=== PATIENT | female | born 1995 | race Caucasian/White ===

== ENCOUNTER 2016-10-05 18:36 | Emergency (ER) | payer OTHER ==
[~2016-10-05 18:36] MED LIST: FERROUS SULFAT324 MG PO; PRENATAL1 TAB PO
--- NOTE | 2016-10-05 21:08 | DIAGNOSTIC IMAGING REPORT ---
PROCEDURE: CT HEAD WITHOUT CONTRAST INDICATION: HEADACHE TECHNIQUE: Axial CT images were acquired through the head. Coronal and sagittal reformations were created. COMPARISON: None. FINDINGS: No intracranial hemorrhage or extraaxial fluid collections. Ventricles are normal in size, shape and position. There is no mass effect or midline shift. The asif-white matter differentiation is normal. 9 mm small focal wedge-shaped hypodensity in the superior left cerebellar hemisphere Incidental note is made of ovoid osseous excrescence, homogeneously calcified, measuring 13 x 7 x 9 mm with a broad-based attachment to the right frontal parasagittal dura near the vertex. The calvarium is intact. Patchy partial opacification of many of the ethmoid air cells. No acute air fluid levels the visible sinuses although distal maxillary sinuses are not included on the film. The other paranasal sinuses and mastoid air cells are normally aerated. The extracranial soft tissues and orbits are normal. IMPRESSION: 1. 9 mm wedge-shaped hypodensity in the left superior cerebellar hemisphere of uncertain etiology and chronicity. While this may be benign, a small infarct cannot be excluded. 2. Incidental note made of a 13 mm calcified dural-based right frontal vertex lesion, likely a meningioma or arachnoid granulation. 3. Contrast enhanced MRI is recommended for further evaluation. 4. Mild ethmoid sinus disease. 5. Findings discussed with Jailene Cruz at [address] scans at this facility use dose modulation, iterative reconstruction, and/or weight-based dosing when appropriate to reduce radiation dose to as low as reasonably achievable.
--- NOTE | 2016-10-05 21:23 | ED CLINICAL REPORT ---
Clinical Report - Physicians/Mid Levels [facility] [address] [place] [address] 10/05/2016 18:36 Patient: MIKEY ARRIAGA Time Seen: 19:22; initial patient contact, initial documentation, patient care assumed. Arrived- By private vehicle. Historian- patient. HISTORY OF PRESENT ILLNESS Chief Complaint: HEADACHE. Is still present (persistent today). 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 It was abrupt in onset and has been intermittent (headache started x2 days ago, took meds, went to bed, awoke, headache gone, came back today). It is described as "pain". Located in the right hemicranial, right parietal, right temporal and frontal region and region of the right eye. Located in the facial region. No neck pain. At its maximum, severity described as severe. When seen in the E.D., severity described as severe. Modifying factors: worsened by bright light; relieved by nothing. The patient has had blurred vision, photophobia, nausea and vomiting. The vomiting has occurred twice. No preceding symptoms, numbness or weakness. No recent travel. Similar symptoms previously: Milder. Recent medical care: Not recently seen/assessed. REVIEW OF SYSTEMS No fever, ear pain, sore throat, head injury or chest pain. No difficulty breathing or abdominal pain. She has had sinus pressure (says she came down with head cold thing about 2 days ago when headache first started). All systems otherwise negative, except as recorded above. PAST HISTORY See nurses notes. History of chronic headaches. PROBLEMS: URI. Abdominal Pain. UTI - Urinary Tract Infection. OB History. Demise. Anxiety Reaction. Allergic Reaction. Asthma. Myofascial Strain. Fall. Contusion. --19:10 Merari Del Valle. ADDITIONAL SURGERIES: Dilatation & Curettage. Fracture Repair. Previous Abdominal Surgery. Wrist - right. --19:10 Merari Del Valle. SOCIAL HISTORY Never smoker. No alcohol use or drug use. No recent travel. Is a local resident. FAMILY HISTORY Negative. ADDITIONAL NOTES The nursing notes have been reviewed with agreement regarding the chief complaint, HPI, ROS, PMH and patient medications and allergies. PHYSICAL EXAM Vital Signs: 10/05/2016 19:12 BP: 121/81. HR: 83. RR: 16. O2 saturation: 99%. Temp: 98.5 F. Have been reviewed as normal and appear to be correct. Appearance: Alert. No acute distress. Head: Tenderness present to percussion/palpation of the sinuses: mild right and left frontal tenderness, ethmoid tenderness. Eyes: Pupils equal, round and reactive to light. Eyes normal inspection. ENT: Ears normal. Nose abnormal. Pharynx normal. Neck: Normal inspection. Neck supple. CVS: Normal heart rate and rhythm. Heart sounds normal. Pulses normal. Respiratory: No respiratory distress. Breath sounds normal. Abdomen: Soft and nontender. No organomegaly. Back: Normal inspection. Skin: Skin warm and dry. Normal skin color. No rash. Normal skin turgor. Extremities: Extremities exhibit normal ROM. No lower extremity edema. Neuro: Oriented X 3. Alert. Mood/affect normal. Speech normal. Cranial nerves normal (as tested). No cerebellar findings. No motor deficit. No sensory deficit. LABS, X-RAYS, AND EKG CT Head: . (IMPRESSION: 1. 9 mm wedge-shaped hypodensity in the left superior cerebellar hemisphere of uncertain etiology and chronicity. While this may be benign, a small infarct cannot be excluded. 2. Incidental note made of a 13 mm calcified dural-based right frontal vertex lesion, likely a meningioma or arachnoid granulation. 3. Contrast enhanced MRI is recommended for further evaluation. 4. Mild ethmoid sinus disease. 5. Findings discussed with Jailene Cruz at [address] scans at this facility use dose modulation, iterative reconstruction, and/or weight-based dosing when appropriate to reduce radiation dose to as low as reasonably achievable. Electronically Final signed by:Vandana Steinberg MD 10/05/2016 9:08:07 PM). PROGRESS AND PROCEDURES Patient and spouse counseled in person regarding the patient's stable condition, test results and diagnosis. 2114. Differential Diagnosis: I considered vascular etiology, migraine, cluster headache, subarachnoid hemorrhage, intracranial bleed, vascular malformation, cerebral aneurysm, vascular dissection, vasculitis, temporal arteritis, encephalitis, brain abscess, sinusitis, influenza, viral syndrome, carbon monoxide exposure, analgesic abuse, hypoglycemia, trigeminal neuralgia and muscle tension as a possible cause of headache in this patient. This is a partial list of diagnoses considered. Above considerations are based on history, physical exam, reassessment and other information. Differential diagnosis was discussed with patient. Disposition: Discharged home in good and improved condition (21:23). Condition: good and stable. CLINICAL IMPRESSION Acute, poorly controlled headache. INSTRUCTIONS Do not work today, tomorrow. Warnings: Further evaluation is necessary in order to conduct further tests and assess the possibility of serious illness. It is very important to follow up with a physician. GENERAL WARNINGS: Return or contact your physician immediately if your condition worsens or changes unexpectedly, if not improving as expected, or if other problems arise. SPECIFICALLY, return if you develop fever, vomiting, numbness, weakness, difficulty thinking, visual disturbances, fainting or extreme fatigue. Prescription Medications: Zofran 4 mg: Take 1 orally every six hours as needed for nausea/vomiting. Dispense ten (10). No refills. Substitution is permissible. Fioricet: Take 1-2 orally every 4 hours as needed for headache. Dispense twenty (20). No refills. Substitution is permissible. Follow-up: Follow up with your doctor in about two days even if well. Call for an appointment. Summary of care provided to patient and family. Understanding of the discharge instructions verbalized by patient and family. Follow-up with: Lio Jasso MD, Neurology, , [address], , [place], [phone]; Susan Howell MD, Neurology, , [address], , [place], [phone] Follow up in about two days even if well. Call for an appointment. Summary of care provided to patient and family. (Electronically signed by Jailene Cruz A.R.N.P. 10/05/2016 22:01)
--- NOTE | 2016-10-05 21:23 | ED CLINICAL REPORT ---
Clinical Report - Physicians/Mid Levels [facility] [address] [place] [address] 10/05/2016 18:36 Patient: MIKEY ARRIAGA Time Seen: 19:22; initial patient contact, initial documentation, patient care assumed. Arrived- By private vehicle. Historian- patient. HISTORY OF PRESENT ILLNESS Chief Complaint: HEADACHE. Is still present (persistent today). 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 It was abrupt in onset and has been intermittent (headache started x2 days ago, took meds, went to bed, awoke, headache gone, came back today). It is described as "pain". Located in the right hemicranial, right parietal, right temporal and frontal region and region of the right eye. Located in the facial region. No neck pain. At its maximum, severity described as severe. When seen in the E.D., severity described as severe. Modifying factors: worsened by bright light; relieved by nothing. The patient has had blurred vision, photophobia, nausea and vomiting. The vomiting has occurred twice. No preceding symptoms, numbness or weakness. No recent travel. Similar symptoms previously: Milder. Recent medical care: Not recently seen/assessed. REVIEW OF SYSTEMS No fever, ear pain, sore throat, head injury or chest pain. No difficulty breathing or abdominal pain. She has had sinus pressure (says she came down with head cold thing about 2 days ago when headache first started). All systems otherwise negative, except as recorded above. PAST HISTORY See nurses notes. History of chronic headaches. PROBLEMS: URI. Abdominal Pain. UTI - Urinary Tract Infection. OB History. Demise. Anxiety Reaction. Allergic Reaction. Asthma. Myofascial Strain. Fall. Contusion. --19:10 Merari Del Valle. ADDITIONAL SURGERIES: Dilatation & Curettage. Fracture Repair. Previous Abdominal Surgery. Wrist - right. --19:10 Merari Del Valle. SOCIAL HISTORY Never smoker. No alcohol use or drug use. No recent travel. Is a local resident. FAMILY HISTORY Negative. ADDITIONAL NOTES The nursing notes have been reviewed with agreement regarding the chief complaint, HPI, ROS, PMH and patient medications and allergies. PHYSICAL EXAM Vital Signs: 10/05/2016 19:12 BP: 121/81. HR: 83. RR: 16. O2 saturation: 99%. Temp: 98.5 F. Have been reviewed as normal and appear to be correct. Appearance: Alert. No acute distress. Head: Tenderness present to percussion/palpation of the sinuses: mild right and left frontal tenderness, ethmoid tenderness. Eyes: Pupils equal, round and reactive to light. Eyes normal inspection. ENT: Ears normal. Nose abnormal. Pharynx normal. Neck: Normal inspection. Neck supple. CVS: Normal heart rate and rhythm. Heart sounds normal. Pulses normal. Respiratory: No respiratory distress. Breath sounds normal. Abdomen: Soft and nontender. No organomegaly. Back: Normal inspection. Skin: Skin warm and dry. Normal skin color. No rash. Normal skin turgor. Extremities: Extremities exhibit normal ROM. No lower extremity edema. Neuro: Oriented X 3. Alert. Mood/affect normal. Speech normal. Cranial nerves normal (as tested). No cerebellar findings. No motor deficit. No sensory deficit. LABS, X-RAYS, AND EKG CT Head: . (IMPRESSION: 1. 9 mm wedge-shaped hypodensity in the left superior cerebellar hemisphere of uncertain etiology and chronicity. While this may be benign, a small infarct cannot be excluded. 2. Incidental note made of a 13 mm calcified dural-based right frontal vertex lesion, likely a meningioma or arachnoid granulation. 3. Contrast enhanced MRI is recommended for further evaluation. 4. Mild ethmoid sinus disease. 5. Findings discussed with Jailene Cruz at [address] scans at this facility use dose modulation, iterative reconstruction, and/or weight-based dosing when appropriate to reduce radiation dose to as low as reasonably achievable. Electronically Final signed by:Vandana Steinberg MD 10/05/2016 9:08:07 PM). PROGRESS AND PROCEDURES Patient and spouse counseled in person regarding the patient's stable condition, test results and diagnosis. 2114. Differential Diagnosis: I considered vascular etiology, migraine, cluster headache, subarachnoid hemorrhage, intracranial bleed, vascular malformation, cerebral aneurysm, vascular dissection, vasculitis, temporal arteritis, encephalitis, brain abscess, sinusitis, influenza, viral syndrome, carbon monoxide exposure, analgesic abuse, hypoglycemia, trigeminal neuralgia and muscle tension as a possible cause of headache in this patient. This is a partial list of diagnoses considered. Above considerations are based on history, physical exam, reassessment and other information. Differential diagnosis was discussed with patient. Disposition: Discharged home in good and improved condition (21:23). Condition: good and stable. CLINICAL IMPRESSION Acute, poorly controlled headache. INSTRUCTIONS Do not work today, tomorrow. Warnings: Further evaluation is necessary in order to conduct further tests and assess the possibility of serious illness. It is very important to follow up with a physician. GENERAL WARNINGS: Return or contact your physician immediately if your condition worsens or changes unexpectedly, if not improving as expected, or if other problems arise. SPECIFICALLY, return if you develop fever, vomiting, numbness, weakness, difficulty thinking, visual disturbances, fainting or extreme fatigue. Prescription Medications: Zofran 4 mg: Take 1 orally every six hours as needed for nausea/vomiting. Dispense ten (10). No refills. Substitution is permissible. Fioricet: Take 1-2 orally every 4 hours as needed for headache. Dispense twenty (20). No refills. Substitution is permissible. Follow-up: Follow up with your doctor in about two days even if well. Call for an appointment. Summary of care provided to patient and family. Understanding of the discharge instructions verbalized by patient and family. Follow-up with: Lio Jasso MD, Neurology, , [address], , [place], [id number]; Susan Howell MD, Neurology, , [address], , [place], [phone] Follow up in about two days even if well. Call for an appointment. Summary of care provided to patient and family. (Electronically signed by Jailene Cruz A.R.N.P. 10/05/2016 22:01)
--- NOTE | 2016-10-05 21:23 | ED NURSING NOTES ---
Clinical Report - Nurses [facility] [address] [place] [address] 10/05/2016 18:36 [id number] TRI[facility] Triage time 19:08 Oct 05 2016. Acuity: LEVEL 5. Chief Complaint: HEADACHE. 19:10/05/16. Alert. No acute distress. SEPSIS SCREEN: Sepsis Screen. Negative (no infection suspected/documented). DINA COMA SCORE: Bradford Coma Scale: 15- eyes open spontaneously (4); best verbal response- oriented x 4 (5); best motor response- obeys commands (6). --19:12 Merari Del Valle 19:12 10/05/16. BP: 121/81. HR: 83. RR: 16. O2 saturation: 99%. Temp: 98.5 F. Pain level now 7/10. --19:12 Merari Del Valle 19:12 10/05/16. --19:12 Merari Del Valle. Weight: 72.5 kg stated. Height/Length: 65 inches Per Patient. BMI: 26.6. --19:07 Merari Del Valle. Medications Amoxicillin Oral (UTI). --19:09 Merari Del Valle Multivitamins Oral. --19:10 Merari Del Valle. Medication/allergy information source: the patient. --19:12 Merari Del Valle. Allergies Sulfa Antibiotics. --19:10 Merari Del Valle Latex. --19:10 Merari Del Valle. History Arrived by private vehicle. Historian: patient. Accompanied by friend. Primary physician (Azalia). This started Noon today. ( Pt reports that her headache started at about noon. This is worse than her usual headaches. Has had N/V. Hasn't felt sick before this. Denies other symptoms. Reports mildly blurred vision.). She has had nausea and vomiting. No weakness, numbness or fever. 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 PAST MEDICAL HX: Headaches. No history of head injury. Immunizations: up-to-date. Last normal menstrual period- Doesn't remember, pill takes periods away. Uses control pills. FALL RISK ASSESSMENT: Fall risk assessment completed. No fall risk identified. NUTRITIONAL RISK ASSESSMENT: The nutritional risk assessment revealed no deficiencies. FUNCTIONAL ASSESSMENT: Functional assessment: no impairments noted. LEARNING NEEDS ASSESSMENT: The learning needs assessment revealed no barriers. SKIN INTEGRITY ASSESSMENT: Skin integrity risk assessment completed. No skin integrity risk identified. --19:12 Merari Del Valle SOCIAL HX: Never smoker. No alcohol use or drug use. No recent travel. She has had contact with a sick individual. (head cold-patient). --19:12 Merari Del Valle. PROBLEMS: URI. Abdominal Pain. UTI - Urinary Tract Infection. OB History. Demise. Anxiety Reaction. Allergic Reaction. Asthma. Myofascial Strain. Fall. Contusion. --19:10 Merari Del Valle. ADDITIONAL SURGERIES: Dilatation & Curettage. Fracture Repair. Previous Abdominal Surgery. Wrist - right. --19:10 Merari Del Valle. Assessment The patient states feels the same. --19:12 Merari Del Valle. Interventions ID band on patient. --19:12 Merari Del Valle. PHYSICAL ASSESSMENT 19:10/05/16. Ambulatory to room. GENERAL / NEURO / PSYCH: Alert. Oriented X 4. Appears in no acute distress. Speech within normal limits. HEENT: No facial asymmetry noted. Pupils equal, round and reactive to light. RESPIRATORY: Respirations not labored. CVS: Capillary refill less than 2 seconds. GI / : Abdomen soft and nontender. SKIN: Skin is warm and dry. --19:13 Merari Del Valle. NURSING PROGRESS NOTES 19:10/05/16. The plan of care for this patient has been created. Head of bed elevated. Reassurance given. Lights dimmed. Two patient identifiers checked. Call light placed in reach. Side rails up x 1. Bed placed in lowest position. Brakes of bed on. Patient ready for evaluation- chart flagged and ED physician and ROLLER REPAIRER notified. --19:13 Merari Del Valle 19:10/05/16. ( Has had a migraine before, but this is worse.). --19:13 Merari Del Valle 20:14 10/05/2016 Toradol (Ketorolac Tromethamine) IM 60 mg given. Given in the right anterior lateral thigh. --20:17 Merari Del Valle 20:16 10/05/2016 Reglan (Metoclopramide HCl) IM 10 mg given. Given in the right gluteus asya. Allergies verified and confirmed 5 rights. --20:18 Merari Del Valle 20:17 10/05/2016 Benadryl (DiphenhydrAMINE HCl) IM 50 mg given. Given in the right deltoid. Allergies verified, confirmed 5 rights and sedative warning given to the patient. --20:17 Merari Del Valle 20:18 10/05/16. Patient walked to [facility] with tech. (20:18 Oct 05 2016). --20:18 Merari Del Valle. DISPOSITION / DISCHARGE 21:38 10/05/16. Departure time: :Oct 05 2016. Condition at departure: improved. The goals identified in the patient's plan of care were met. No learning barriers present. Discharge instructions provided and reviewed with communications attendant and the patient. Reviewed warnings (Patient's friend verbalized awareness of warning s/sx listed in dc paperwork.). Reviewed medication(s) side effects, precautions, dosing and course information. Prescription(s) given to the patient (fioricet, zofran). Treatments reviewed. Reviewed referral to a primary care physician for followup. Patient and communications attendant verbalized understanding. Written instructions provided in Slovak. The patient was discharged by the nurse practitioner. She was discharged home and accompanied by communications attendant. She left the Emergency Department ambulatory and via private vehicle. Document Examiner driving. FALL RISK ASSESSMENT: Fall risk assessment completed. No fall risk identified. --21:39 Merari Del Valle 21:37 10/05/16. BP: 100/65. HR: 81. RR: 15. O2 saturation: 100% on room air. Temp: 98.3 F. Pain level now: 06/04. --21:39 Merari Del Valle. Locked/Released at 10/05/2016 21:55 by Merari Del Valle,
--- NOTE | 2016-10-05 21:23 | ED ORDER SUMMARY ---
..... Patient: MIKEY ARRIAGA OrderSheet [facility] VisitID: [id number] [address] [place] [address] 21y, F Registration Date/Time: 10/05/2016 ORDER SHEET Weight: 72.5 kg (stated) Allergies: Sulfa Antibiotics, Latex GENERAL ORDERS: CT Head wo Cont Urgent (20:08 10/05/2016 HBivens A.R.N.P.) (Ack 20:09 [facility] ER Herb Doctor) [facility] MEDICATION ORDERS: Toradol IM 60 mg (NOW) (20:08 10/05/2016 HBivens A.R.N.P.) (20:17 ASchmuck) Benadryl IM 50 mg (NOW) (20:08 10/05/2016 HBivens A.R.N.P.) (20:18 ASchmuck) - (reglan 10mg im stat please) (20:10/05/2016 HBivens A.R.N.P.) (20:18 ASchmuck) IV FLUIDS: ORDER SHEET NOTES: [Electronically signed by Merari Del Valle (21:55 10/05/2016)] [Electronically signed by Jailene Cruz A.R.N.P. (22:01 10/05/2016)] [Electronically locked/signed by Merari Del Valle (21:55 10/05/2016)]
--- NOTE | 2016-10-05 21:23 | ED NURSING NOTES ---
Clinical Report - Nurses [facility] [address] [place] [address] 10/05/2016 18:36 [id number] Triage time 19:08 Oct 05 2016. Acuity: LEVEL 5. Chief Complaint: HEADACHE. 19:10/05/16. Alert. No acute distress. SEPSIS SCREEN: Sepsis Screen. Negative (no infection suspected/documented). DINA COMA SCORE: [place] Coma Scale: 15- eyes open spontaneously (4); best verbal response- oriented x 4 (5); best motor response- obeys commands (6). --19:12 Merari Del Valle 19:12 10/05/16. BP: 121/81. HR: 83. RR: 16. O2 saturation: 99%. Temp: 98.5 F. Pain level now 7/10. --19:12 Merari Del Valle 19:12 10/05/16. --19:12 Merari Del Valle. Weight: 72.5 kg stated. Height/Length: 65 inches Per Patient. BMI: 26.6. --19:07 Merari Del Valle. Medications Amoxicillin Oral (UTI). --19:09 Merari Del Valle Multivitamins Oral. --19:10 Merari Del Valle. Medication/allergy information source: the patient. --19:12 Merari Del Valle. Allergies Sulfa Antibiotics. --19:10 Merari Del Valle Latex. --19:10 Merari Del Valle. History Arrived by private vehicle. Historian: patient. Accompanied by friend. Primary physician (Azalia). This started Noon today. ( Pt reports that her headache started at about noon. This is worse than her usual headaches. Has had N/V. Hasn't felt sick before this. Denies other symptoms. Reports mildly blurred vision.). She has had nausea and vomiting. No weakness, numbness or fever. 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 PAST MEDICAL HX: Headaches. No history of head injury. Immunizations: up-to-date. Last normal menstrual period- Doesn't remember, pill takes periods away. Uses control pills. FALL RISK ASSESSMENT: Fall risk assessment completed. No fall risk identified. NUTRITIONAL RISK ASSESSMENT: The nutritional risk assessment revealed no deficiencies. FUNCTIONAL ASSESSMENT: Functional assessment: no impairments noted. LEARNING NEEDS ASSESSMENT: The learning needs assessment revealed no barriers. SKIN INTEGRITY ASSESSMENT: Skin integrity risk assessment completed. No skin integrity risk identified. --19:12 Merari Del Valle SOCIAL HX: Never smoker. No alcohol use or drug use. No recent travel. She has had contact with a sick individual. (head cold-patient). --19:12 Merari Del Valle. PROBLEMS: URI. Abdominal Pain. UTI - Urinary Tract Infection. OB History. Demise. Anxiety Reaction. Allergic Reaction. Asthma. Myofascial Strain. Fall. Contusion. --19:10 Merari Del Valle. ADDITIONAL SURGERIES: Dilatation & Curettage. Fracture Repair. Previous Abdominal Surgery. Wrist - right. --19:10 Merari Del Valle. Assessment The patient states feels the same. --19:12 Merari Del Valle. Interventions ID band on patient. --19:12 Merari Del Valle. PHYSICAL ASSESSMENT 19:10/05/16. Ambulatory to room. GENERAL / NEURO / PSYCH: Alert. Oriented X 4. Appears in no acute distress. Speech within normal limits. HEENT: No facial asymmetry noted. Pupils equal, round and reactive to light. RESPIRATORY: Respirations not labored. CVS: Capillary refill less than 2 seconds. GI / : Abdomen soft and nontender. SKIN: Skin is warm and dry. --19:13 Merari Del Valle. NURSING PROGRESS NOTES 19:10/05/16. The plan of care for this patient has been created. Head of bed elevated. Reassurance given. Lights dimmed. Two patient identifiers checked. Call light placed in reach. Side rails up x 1. Bed placed in lowest position. Brakes of bed on. Patient ready for evaluation- chart flagged and ED physician and BRICK TOSSER notified. --19:13 Merari Del Valle 19:10/05/16. ( Has had a migraine before, but this is worse.). --19:13 Merari Del Valle 20:14 10/05/2016 Toradol (Ketorolac Tromethamine) IM 60 mg given. Given in the right anterior lateral thigh. --20:17 Merari Del Valle 20:16 10/05/2016 Reglan (Metoclopramide HCl) IM 10 mg given. Given in the right gluteus asya. Allergies verified and confirmed 5 rights. --20:18 Merari Del Valle 20:17 10/05/2016 Benadryl (DiphenhydrAMINE HCl) IM 50 mg given. Given in the right deltoid. Allergies verified, confirmed 5 rights and sedative warning given to the patient. --20:17 Merari Del Valle 20:18 10/05/16. Patient walked to [facility] with tech. (20:18 Oct 05 2016). --20:18 Merari Del Valle. DISPOSITION / DISCHARGE 21:38 10/05/16. Departure time: :Oct 05 2016. Condition at departure: improved. The goals identified in the patient's plan of care were met. No learning barriers present. Discharge instructions provided and reviewed with surface grinder tender and the patient. Reviewed warnings (Patient's friend verbalized awareness of warning s/sx listed in dc paperwork.). Reviewed medication(s) side effects, precautions, dosing and course information. Prescription(s) given to the patient (fioricet, zofran). Treatments reviewed. Reviewed referral to a primary care physician for followup. Patient and surface grinder tender verbalized understanding. Written instructions provided in Thai. The patient was discharged by the nurse practitioner. She was discharged home and accompanied by surface grinder tender. She left the Emergency Department ambulatory and via private vehicle. Partner Integration Planner driving. FALL RISK ASSESSMENT: Fall risk assessment completed. No fall risk identified. --21:39 Merari Del Valle 21:37 10/05/16. BP: 100/65. HR: 81. RR: 15. O2 saturation: 100% on room air. Temp: 98.3 F. Pain level now: 06/04. --21:39 Merari Del Valle. Locked/Released at 10/05/2016 21:55 by Merari Del Valle,
--- NOTE | 2016-10-05 21:23 | ED ORDER SUMMARY ---
..... Patient: MIKEY ARRIAGA OrderSheet [facility] VisitID: [id number] [address] [place] [address] 21y, F Registration Date/Time: 10/05/2016 ORDER SHEET Weight: 72.5 kg (stated) Allergies: Sulfa Antibiotics, Latex GENERAL ORDERS: CT Head wo Cont Urgent (20:08 10/05/2016 HBivens A.R.N.P.) (Ack 20:09 [facility] ER Patch Sander) [facility] MEDICATION ORDERS: Toradol IM 60 mg (NOW) (20:08 10/05/2016 HBivens A.R.N.P.) (20:17 ASchmuck) Benadryl IM 50 mg (NOW) (20:08 10/05/2016 HBivens A.R.N.P.) (20:18 ASchmuck) - (reglan 10mg im stat please) (20:10/05/2016 HBivens A.R.N.P.) (20:18 ASchmuck) IV FLUIDS: ORDER SHEET NOTES: [Electronically signed by Merari Del Valle (21:55 10/05/2016)] [Electronically signed by Jailene Cruz A.R.N.P. (22:01 10/05/2016)] [Electronically locked/signed by Merari Del Valle (21:55 10/05/2016)]
--- NOTE | 2016-10-05 22:01 | ED DISCHARGE INSTRUCTIONS ---
Patient: MIKEY ARRIAGA General Instructions [facility] VisitID: [id number] [address] [place] [address] 21y, F Registration Date/Time: 10/05/2016 Acute, poorly controlled headache. INSTRUCTIONS Do not work today, tomorrow. Warnings: Further evaluation is necessary in order to conduct further tests and assess the possibility of serious illness. It is very important to follow up with a physician. GENERAL WARNINGS: Return or contact your physician immediately if your condition worsens or changes unexpectedly, if not improving as expected, or if other problems arise. SPECIFICALLY, return if you develop fever, vomiting, numbness, weakness, difficulty thinking, visual disturbances, fainting or extreme fatigue. Prescription Medications: Zofran 4 mg: Take 1 orally every six hours as needed for nausea/vomiting. Dispense ten (10). No refills. Substitution is permissible. Fioricet: Take 1-2 orally every 4 hours as needed for headache. Dispense twenty (20). No refills. Substitution is permissible. Follow-up: Follow up with your doctor in about two days even if well. Call for an appointment. Summary of care provided to patient and family. Understanding of the discharge instructions verbalized by patient and family. Follow-up with: Lio Jasso MD, Neurology, , [address], , [place], [id number]; Susan Howell MD, Neurology, , [address], , [place], [id number] Follow up in about two days even if well. Call for an appointment. Summary of care provided to patient and family. ADDITIONAL INFORMATION Headache [Unspecified] The cause of your headache today is not clear, but it does not appear to be the sign of any serious illness. Under stress, some people tense the muscles of their shoulder, neck and scalp without knowing it. If this condition lasts long enough, a TENSION HEADACHE can occur. A MIGRAINE HEADACHE is caused by changes in blood flow to the brain. A migraine attack may be triggered by emotional stress, hormone changes during the menstrual cycle, oral contraceptives, alcohol use, certain foods containing tyramine, eye strain, weather changes, missing meals, lack of sleep or oversleeping. Other causes of headache include a viral illness with high fever, head injury with concussion, sinus, ear or throat infection, dental pain and TMJ (jaw joint) pain. More serious but less common causes of headache include stroke, brain hemorrhage, brain tumor, meningitis and encephalitis. Home Care: If you were given pain medicine for this headache, do not drive yourself home. Arrange for a ride, instead. When you get home, try to sleep. You should feel much better when you wake up. Apply heat to the back of your neck to relieve neck muscle spasm. Migraine headaches may respond best to an ice pack on the forehead or at the base of the skull. If you are having nausea or vomiting, follow a light diet until your headache is relieved. If you have a migraine type headache, use sunglasses when in the daylight or around bright indoor lighting until symptoms improve. Bright glaring light can worsen this kind of headache. Follow Up with your doctor if the headache is not better within the next 24 hours. If you have frequent headaches you should discuss a treatment plan with your primary care doctor. By being aware of the earliest signs of headache, and starting treatment right away, you may be able to stop the pain yourself. Get Prompt Medical Attention if any of the following occur: Worsening of your head pain or no improvement within 24 hours Repeated vomiting (unable to keep liquids down) Fever of 100.4F (38C) or higher, or as directed by your healthcare provider Stiff neck Extreme drowsiness, confusion or fainting Dizziness, vertigo (dizziness with spinning sensation) Weakness of an arm or leg or one side of the face Difficulty with speech or vision Ondansetron Oral disintegrating tablet What is this medicine? ONDANSETRON (on EMILI se alli) is used to treat nausea and vomiting caused by chemotherapy. It is also used to prevent or treat nausea and vomiting after surgery. How should I use this medicine? These tablets are made to dissolve in the mouth. Do not try to push the tablet through the foil backing. With dry hands, peel away the foil backing and gently remove the tablet. Place the tablet in the mouth and allow it to dissolve, then swallow. While you may take these tablets with water, it is not necessary to do so. Talk to your marketing planner regarding the use of this medicine in children. Special care may be needed. What side effects may I notice from receiving this medicine? Side effects that you should report to your doctor or health healthcare liaison as soon as possible: allergic reactions like skin rash, itching or hives, swelling of the face, lips, or tongue breathing problems dizziness fast or irregular heartbeat feeling faint or lightheaded, falls fever and chills swelling of the hands and feet tightness in the chest Side effects that usually do not require medical attention (report to your doctor or health healthcare liaison if they continue or are bothersome): constipation or diarrhea headache What may interact with this medicine? Do not take this medicine with any of the following medications: -apomorphine -cisapride -dofetilide -dronedarone -pimozide -thioridazine -ziprasidone This medicine may also interact with the following medications: -carbamazepine -phenytoin -rifampicin -tramadol -other medicines that prolong the QT interval (cause an abnormal heart rhythm) What if I miss a dose? If you miss a dose, take it as soon as you can. If it is almost time for your next dose, take only that dose. Do not take double or extra doses. Where should I keep my medicine? Keep out of the reach of children. Store between 2 and 30 degrees C (36 and 86 degrees F). Throw away any unused medicine after the expiration date. What should I tell my health care provider before I take this medicine? They need to know if you have any of these conditions: heart disease history of irregular heartbeat liver disease low levels of magnesium or potassium in the blood an unusual or allergic reaction to ondansetron, granisetron, other medicines, foods, dyes, or preservatives or trying to get breast-feeding What should I watch for while using this medicine? Check with your doctor or health healthcare liaison as soon as you can if you have any sign of an allergic reaction. Butalbital, Acetaminophen, Caffeine Oral tablet What is this medicine? ACETAMINOPHEN; BUTALBITAL; CAFFEINE (a set a CALEB binu fen; byphuong REY rachel rey; KAF een) is a pain reliever. It is used to treat tension headaches. How should I use this medicine? Take this medicine by mouth with a full glass of water. Follow the directions on the prescription label. If the medicine upsets your stomach, take the medicine with food or milk. Do not take more than you are told to take. Talk to your marketing planner regarding the use of this medicine in children. Special care may be needed. What side effects may I notice from receiving this medicine? Side effects that you should report to your doctor or health healthcare liaison as soon as possible: allergic reactions like skin rash, itching or hives, swelling of the face, lips, or tongue breathing problems confusion feeling faint or lightheaded, falls redness, blistering, peeling or loosening of the skin, including inside the mouth seizure stomach pain yellowing of the eyes or skin Side effects that usually do not require medical attention (report to your doctor or health healthcare liaison if they continue or are bothersome): constipation nausea, vomiting What may interact with this medicine? alcohol or medicines that contain alcohol antidepressants, especially MAOIs like isocarboxazid, phenelzine, tranylcypromine, and selegiline antihistamines benzodiazepines carbamazepine isoniazid medicines for pain like pentazocine, buprenorphine, butorphanol, nalbuphine, tramadol, and propoxyphene muscle relaxants naltrexone phenobarbital, phenytoin, and fosphenytoin phenothiazines like perphenazine, thioridazine, chlorpromazine, mesoridazine, fluphenazine, prochlorperazine, promazine, and trifluoperazine voriconazole What if I miss a dose? If you miss a dose, take it as soon as you can. If it is almost time for your next dose, take only that dose. Do not take double or extra doses. Where should I keep my medicine? Keep out of the reach of children. This medicine can be abused. Keep your medicine in a safe place to protect it from theft. Do not share this medicine with anyone. Selling or giving away this medicine is dangerous and against the law. Store at room temperature between 15 and 30 degrees C (59 and 86 degrees F). Keep container tightly closed. Protect from light. Throw away any unused medicine after the expiration date. What should I tell my health care provider before I take this medicine? They need to know if you have any of these conditions: drink more than 3 alcohol-containing drinks per day drug abuse or addiction heart or circulation problems kidney disease or problems going to the bathroom liver disease lung disease, asthma, or breathing problems porphyria an unusual or allergic reaction to acetaminophen, butalbital or other barbiturates, caffeine, other medicines, foods, dyes, or preservatives or trying to get breast-feeding What should I watch for while using this medicine? Tell your doctor or health healthcare liaison if your pain does not go away, if it gets worse, or if you have new or a different type of pain. You may develop tolerance to the medicine. Tolerance means that you will need a higher dose of the medicine for pain relief. Tolerance is normal and is expected if you take the medicine for a long time. Do not suddenly stop taking your medicine because you may develop a severe reaction. Your body becomes used to the medicine. This does NOT mean you are addicted. Addiction is a behavior related to getting and using a drug for a non-medical reason. If you have pain, you have a medical reason to take pain medicine. Your doctor will tell you how much medicine to take. If your doctor wants you to stop the medicine, the dose will be slowly lowered over time to avoid any side effects. You may get drowsy or dizzy when you first start taking the medicine or change doses. Do not drive, use machinery, or do anything that may be dangerous until you know how the medicine affects you. Stand or sit up slowly. Do not take other medicines that contain acetaminophen with this medicine. Always read labels carefully. If you have questions, ask your doctor or pharmacist. If you take too much acetaminophen get medical help right away. Too much acetaminophen can be very dangerous and cause liver damage. Even if you do not have symptoms, it is important to get help right away. You have been given the following additional information: Headache, Unspecified Ondansetron Oral disintegrating tablet Butalbital, Acetaminophen, Caffeine Oral tablet Do not work today, tomorrow. (Electronically signed by Jailene Cruz A.R.N.P. 10/05/2016 22:01)
--- NOTE | 2016-10-05 22:01 | ED MAR SUMMARY ---
..... Medication Administration Record [facility] [address] [place] [address] Patient: MIKEY ARRIAGA Visit ID: [id number] 21y, F Weight: 72.5 kg Height/Length: 65 in BMI: 26.6 ALLERGIES: Latex, Sulfa Antibiotics Given 20:14 10/05/2016 Merari Del Valle, Medication Administered: TORADOL [IM] (KETOROLAC TROMETHAMINE), Dose: 60 mg IM. Medication Ordered: Toradol IM 60 mg (NOW). Given 20:16 10/05/2016 Merari Del Valle, Medication Administered: REGLAN [IM] (METOCLOPRAMIDE HCL), Dose: 10 mg IM. Medication Ordered: - (reglan 10mg im stat please). Given 20:17 10/05/2016 Merari Del Valle, Medication Administered: BENADRYL [IM] (DIPHENHYDRAMINE HCL), Dose: 50 mg IM. Medication Ordered: Benadryl IM 50 mg (NOW).
--- NOTE | 2016-10-05 22:01 | ED MED RECONCILIATION SUMMARY ---
Patient: MIKEY ARRIAGA Medication Reconciliation Report [facility] VisitID: [id number] [address] [place] [address] 21y, F Registration Date/Time: 10/05/2016 Weight: 72.5 kg Height/Length: 65 in. BMI: 26.6 ALLERGIES: Latex, Sulfa Antibiotics The patient's Home Medications are listed below: THE FOLLOWING MEDICATIONS NEED TO BE RECONCILED: Amoxicillin Oral, UTI Multivitamins Oral The source(s) of the original Home Medication information: patient The following Medications were given to the patient in the Emergency Department: Toradol [IM] IM 60 mg, administered: 10/05/2016 8:14:00 PM Benadryl [IM] IM 50 mg, administered: 10/05/2016 8:17:00 PM Reglan [IM] IM 10 mg, administered: 10/05/2016 8:16:00 PM The following Medications were prescribed to the patient: Zofran 4 mg: Take 1 orally every six hours as needed for nausea/vomiting. Dispense ten (10). No refills. Substitution is permissible. -- Jailene Cruz, A.R.N.P. Fioricet: Take 1-2 orally every 4 hours as needed for headache. Dispense twenty (20). No refills. Substitution is permissible. -- Jailene Cruz A.R.N.P.
--- NOTE | 2016-10-05 22:01 | ED MAR SUMMARY ---
..... Medication Administration Record [facility] [address] [place] [address] Patient: MIKEY ARRIAGA Visit ID: [id number] 21y, F Weight: 72.5 kg Height/Length: 65 in BMI: 26.6 ALLERGIES: Latex, Sulfa Antibiotics Given 20:14 10/05/2016 Merari Del Valle, Medication Administered: TORADOL [IM] (KETOROLAC TROMETHAMINE), Dose: 60 mg IM. Medication Ordered: Toradol IM 60 mg (NOW). Given 20:16 10/05/2016 Merari Del Valle, Medication Administered: REGLAN [IM] (METOCLOPRAMIDE HCL), Dose: 10 mg IM. Medication Ordered: - (reglan 10mg im stat please). Given 20:17 10/05/2016 Merari Del Valle, Medication Administered: BENADRYL [IM] (DIPHENHYDRAMINE HCL), Dose: 50 mg IM. Medication Ordered: Benadryl IM 50 mg (NOW).
--- NOTE | 2016-10-05 22:01 | ED MED RECONCILIATION SUMMARY ---
Patient: MIKEY ARRIAGA Medication Reconciliation Report [facility] VisitID: [id number] [address] [place] [address] 21y, F Registration Date/Time: 10/05/2016 Weight: 72.5 kg Height/Length: 65 in. BMI: 26.6 ALLERGIES: Latex, Sulfa Antibiotics The patient's Home Medications are listed below: THE FOLLOWING MEDICATIONS NEED TO BE RECONCILED: Amoxicillin Oral, UTI Multivitamins Oral The source(s) of the original Home Medication information: patient The following Medications were given to the patient in the Emergency Department: Toradol [IM] IM 60 mg, administered: 10/05/2016 8:14:00 PM Benadryl [IM] IM 50 mg, administered: 10/05/2016 8:17:00 PM Reglan [IM] IM 10 mg, administered: 10/05/2016 8:16:00 PM The following Medications were prescribed to the patient: Zofran 4 mg: Take 1 orally every six hours as needed for nausea/vomiting. Dispense ten (10). No refills. Substitution is permissible. -- Jailene Cruz, A.R.N.P. Fioricet: Take 1-2 orally every 4 hours as needed for headache. Dispense twenty (20). No refills. Substitution is permissible. -- Jailene Cruz A.R.N.P.
--- NOTE | 2016-10-05 22:01 | ED DISCHARGE INSTRUCTIONS ---
Patient: MIKEY ARRIAGA General Instructions [facility] VisitID: [id number] [address] [place] [address] 21y, F Registration Date/Time: 10/05/2016 Acute, poorly controlled headache. INSTRUCTIONS Do not work today, tomorrow. Warnings: Further evaluation is necessary in order to conduct further tests and assess the possibility of serious illness. It is very important to follow up with a physician. GENERAL WARNINGS: Return or contact your physician immediately if your condition worsens or changes unexpectedly, if not improving as expected, or if other problems arise. SPECIFICALLY, return if you develop fever, vomiting, numbness, weakness, difficulty thinking, visual disturbances, fainting or extreme fatigue. Prescription Medications: Zofran 4 mg: Take 1 orally every six hours as needed for nausea/vomiting. Dispense ten (10). No refills. Substitution is permissible. Fioricet: Take 1-2 orally every 4 hours as needed for headache. Dispense twenty (20). No refills. Substitution is permissible. Follow-up: Follow up with your doctor in about two days even if well. Call for an appointment. Summary of care provided to patient and family. Understanding of the discharge instructions verbalized by patient and family. Follow-up with: Lio Jasso MD, Neurology, , [address], , [place], [id number]; Susan Howell MD, Neurology, , [address], , [place], [id number] Follow up in about two days even if well. Call for an appointment. Summary of care provided to patient and family. ADDITIONAL INFORMATION Headache [Unspecified] The cause of your headache today is not clear, but it does not appear to be the sign of any serious illness. Under stress, some people tense the muscles of their shoulder, neck and scalp without knowing it. If this condition lasts long enough, a TENSION HEADACHE can occur. A MIGRAINE HEADACHE is caused by changes in blood flow to the brain. A migraine attack may be triggered by emotional stress, hormone changes during the menstrual cycle, oral contraceptives, alcohol use, certain foods containing tyramine, eye strain, weather changes, missing meals, lack of sleep or oversleeping. Other causes of headache include a viral illness with high fever, head injury with concussion, sinus, ear or throat infection, dental pain and TMJ (jaw joint) pain. More serious but less common causes of headache include stroke, brain hemorrhage, brain tumor, meningitis and encephalitis. Home Care: If you were given pain medicine for this headache, do not drive yourself home. Arrange for a ride, instead. When you get home, try to sleep. You should feel much better when you wake up. Apply heat to the back of your neck to relieve neck muscle spasm. Migraine headaches may respond best to an ice pack on the forehead or at the base of the skull. If you are having nausea or vomiting, follow a light diet until your headache is relieved. If you have a migraine type headache, use sunglasses when in the daylight or around bright indoor lighting until symptoms improve. Bright glaring light can worsen this kind of headache. Follow Up with your doctor if the headache is not better within the next 24 hours. If you have frequent headaches you should discuss a treatment plan with your primary care doctor. By being aware of the earliest signs of headache, and starting treatment right away, you may be able to stop the pain yourself. Get Prompt Medical Attention if any of the following occur: Worsening of your head pain or no improvement within 24 hours Repeated vomiting (unable to keep liquids down) Fever of 100.4F (38C) or higher, or as directed by your healthcare provider Stiff neck Extreme drowsiness, confusion or fainting Dizziness, vertigo (dizziness with spinning sensation) Weakness of an arm or leg or one side of the face Difficulty with speech or vision Ondansetron Oral disintegrating tablet What is this medicine? ONDANSETRON (on EMILI se alli) is used to treat nausea and vomiting caused by chemotherapy. It is also used to prevent or treat nausea and vomiting after surgery. How should I use this medicine? These tablets are made to dissolve in the mouth. Do not try to push the tablet through the foil backing. With dry hands, peel away the foil backing and gently remove the tablet. Place the tablet in the mouth and allow it to dissolve, then swallow. While you may take these tablets with water, it is not necessary to do so. Talk to your tung nut grower regarding the use of this medicine in children. Special care may be needed. What side effects may I notice from receiving this medicine? Side effects that you should report to your doctor or health career and guidance counselor as soon as possible: allergic reactions like skin rash, itching or hives, swelling of the face, lips, or tongue breathing problems dizziness fast or irregular heartbeat feeling faint or lightheaded, falls fever and chills swelling of the hands and feet tightness in the chest Side effects that usually do not require medical attention (report to your doctor or health career and guidance counselor if they continue or are bothersome): constipation or diarrhea headache What may interact with this medicine? Do not take this medicine with any of the following medications: -apomorphine -cisapride -dofetilide -dronedarone -pimozide -thioridazine -ziprasidone This medicine may also interact with the following medications: -carbamazepine -phenytoin -rifampicin -tramadol -other medicines that prolong the QT interval (cause an abnormal heart rhythm) What if I miss a dose? If you miss a dose, take it as soon as you can. If it is almost time for your next dose, take only that dose. Do not take double or extra doses. Where should I keep my medicine? Keep out of the reach of children. Store between 2 and 30 degrees C (36 and 86 degrees F). Throw away any unused medicine after the expiration date. What should I tell my health care provider before I take this medicine? They need to know if you have any of these conditions: heart disease history of irregular heartbeat liver disease low levels of magnesium or potassium in the blood an unusual or allergic reaction to ondansetron, granisetron, other medicines, foods, dyes, or preservatives or trying to get breast-feeding What should I watch for while using this medicine? Check with your doctor or health career and guidance counselor as soon as you can if you have any sign of an allergic reaction. Butalbital, Acetaminophen, Caffeine Oral tablet What is this medicine? ACETAMINOPHEN; BUTALBITAL; CAFFEINE (a set a CALEB binu fen; byphuong REY rachel rey; KAF een) is a pain reliever. It is used to treat tension headaches. How should I use this medicine? Take this medicine by mouth with a full glass of water. Follow the directions on the prescription label. If the medicine upsets your stomach, take the medicine with food or milk. Do not take more than you are told to take. Talk to your tung nut grower regarding the use of this medicine in children. Special care may be needed. What side effects may I notice from receiving this medicine? Side effects that you should report to your doctor or health career and guidance counselor as soon as possible: allergic reactions like skin rash, itching or hives, swelling of the face, lips, or tongue breathing problems confusion feeling faint or lightheaded, falls redness, blistering, peeling or loosening of the skin, including inside the mouth seizure stomach pain yellowing of the eyes or skin Side effects that usually do not require medical attention (report to your doctor or health career and guidance counselor if they continue or are bothersome): constipation nausea, vomiting What may interact with this medicine? alcohol or medicines that contain alcohol antidepressants, especially MAOIs like isocarboxazid, phenelzine, tranylcypromine, and selegiline antihistamines benzodiazepines carbamazepine isoniazid medicines for pain like pentazocine, buprenorphine, butorphanol, nalbuphine, tramadol, and propoxyphene muscle relaxants naltrexone phenobarbital, phenytoin, and fosphenytoin phenothiazines like perphenazine, thioridazine, chlorpromazine, mesoridazine, fluphenazine, prochlorperazine, promazine, and trifluoperazine voriconazole What if I miss a dose? If you miss a dose, take it as soon as you can. If it is almost time for your next dose, take only that dose. Do not take double or extra doses. Where should I keep my medicine? Keep out of the reach of children. This medicine can be abused. Keep your medicine in a safe place to protect it from theft. Do not share this medicine with anyone. Selling or giving away this medicine is dangerous and against the law. Store at room temperature between 15 and 30 degrees C (59 and 86 degrees F). Keep container tightly closed. Protect from light. Throw away any unused medicine after the expiration date. What should I tell my health care provider before I take this medicine? They need to know if you have any of these conditions: drink more than 3 alcohol-containing drinks per day drug abuse or addiction heart or circulation problems kidney disease or problems going to the bathroom liver disease lung disease, asthma, or breathing problems porphyria an unusual or allergic reaction to acetaminophen, butalbital or other barbiturates, caffeine, other medicines, foods, dyes, or preservatives or trying to get breast-feeding What should I watch for while using this medicine? Tell your doctor or health career and guidance counselor if your pain does not go away, if it gets worse, or if you have new or a different type of pain. You may develop tolerance to the medicine. Tolerance means that you will need a higher dose of the medicine for pain relief. Tolerance is normal and is expected if you take the medicine for a long time. Do not suddenly stop taking your medicine because you may develop a severe reaction. Your body becomes used to the medicine. This does NOT mean you are addicted. Addiction is a behavior related to getting and using a drug for a non-medical reason. If you have pain, you have a medical reason to take pain medicine. Your doctor will tell you how much medicine to take. If your doctor wants you to stop the medicine, the dose will be slowly lowered over time to avoid any side effects. You may get drowsy or dizzy when you first start taking the medicine or change doses. Do not drive, use machinery, or do anything that may be dangerous until you know how the medicine affects you. Stand or sit up slowly. Do not take other medicines that contain acetaminophen with this medicine. Always read labels carefully. If you have questions, ask your doctor or pharmacist. If you take too much acetaminophen get medical help right away. Too much acetaminophen can be very dangerous and cause liver damage. Even if you do not have symptoms, it is important to get help right away. You have been given the following additional information: Headache, Unspecified Ondansetron Oral disintegrating tablet Butalbital, Acetaminophen, Caffeine Oral tablet Do not work today, tomorrow. (Electronically signed by Jailene Cruz A.R.N.P. 10/05/2016 22:01)
== END 2016-10-05 21:38 | disposition home or self-care (01) ==
LOC: ED SRH 18:36
DX: R51 Headache (principal); Z79.899 Other long term (current) drug therapy; Z88.1 Allergy status to other antibiotic agents; Z91.040 Latex allergy status

== ENCOUNTER 2016-11-05 14:53 | Outpatient (CLI) | payer OTHER ==
--- NOTE | 2016-11-05 15:40 | DIAGNOSTIC IMAGING REPORT ---
PROCEDURE: US VENOUS - LEFT EXT INDICATION: LT LEG VARICOSE VEINS TECHNIQUE: Duplex sonography of the deep and superficial venous system in the left lower extremity was performed. Compression and augmentation techniques were used. The patient was scanned in the upright position. Surveillance of the venous system during Valsalva maneuver when appropriate was performed. COMPARISON: None. FINDINGS: Each interrogated segment of the deep vein demonstrates normal compressibility, augmentation, and normal color Doppler flow without filling defect. No thrombus in either greater saphenous or short saphenous vein. Incompetent common femoral vein (9.7 seconds). Incompetent greater saphenous vein proximal (11.9 seconds, diameter 9.6 mm), mid (6 seconds, diameter 6.5 mm) and distal (5.2 seconds, diameter 14.3 mm). Multiple varicose veins from the proximal to the distal calf. IMPRESSION: 1. Venous insufficiency of the left common femoral and greater saphenous veins 2. No evidence of a left lower extremity DVT.
== END 2016-11-05 23:00 ==
LOC: US SRH 14:53
DX: I87.2 Venous insufficiency (chronic) (peripheral) (principal)